=== PATIENT | male | born 1960 | race Caucasian/White ===

== ENCOUNTER → 2020-08-16 | Outpatient (CLI) | payer OTHER ==
[~2020-08-16] MED LIST: ADVAIR; ALPR0.25; ASPI325T; DARV100T; DISDOL; FLOM0.4C39; LEVA500T; METO25TA2; NEXI1CAP3; NITR0.4S; PLAV75TA2; PROZ20CA; THERGRAN; XOPEAER; ZETI10TA; ZOCO80TA
--- NOTE | 2020-08-18 01:12 | ECWPNPC ---
PATIENT NAME: NABEEL BATES : 1960 GENDER: MALE VISIT DATE: 08/16/2020 DISCHARGE DATE: 08/16/20 1408 VISIT LOCKED DATE TIME: PHYSICIAN: ELODIA ALEX RESOURCE: ELODIA ALEX REASON FOR APPOINTMENT 1. SCOLIOSIS OF THE LUMBAR REGION HISTORY OF PRESENT ILLNESS DEPRESSION SCREENING: PHQ-9 LITTLE INTEREST OR PLEASURE IN DOING THINGSNOT AT ALL FEELING DOWN, DEPRESSED, OR HOPELESSNEARLY EVERY DAY TROUBLE FALLING OR STAYING ASLEEP, OR SLEEPING TOO MUCHNEARLY EVERY DAY FEELING TIRED OR HAVING LITTLE ENERGYNEARLY EVERY DAY POOR APPETITE OR OVEREATING NEARLY EVERY DAY FEELING BAD ABOUT YOURSELF-OR THAT YOU ARE A FAILURE OR HAVE LET YOURSELF OR YOUR FAMILY DOWN NEARLY EVERY DAY TROUBLE CONCENTRATING ON THINGS, SUCH READING THE NEWSPAPER OR WATCHING TELEVISION NEARLY EVERY DAY MOVING OR SPEAKING SO SLOWLY THAT OTHER PEOPLE COULD HAVE NOTICED. OR THE OPPOSITE- BEING SO FIDGETY OR RESTLESS THAT YOU HAVE BEEN MOVING AROUND A LOT MORE THAN USUALNEARLY EVERY DAY THOUGHTS THAT YOU WOULD BE BETTER OFF , OR OF HURTING YOURSELF IN SOME WAY?NOT AT ALL TOTAL SCORE:21 INTERPRETATIONSEVERE DEPRESSION PHQ-2 (2015 EDITION) LITTLE INTEREST OR PLEASURE IN DOING THINGS?NOT AT ALL FEELING DOWN, DEPRESSED, OR HOPELESS?NEARLY EVERY DAY TOTAL SCORE3 GENERAL: HPI 60-YEAR-OLD MALE IN FOR INITIAL PAIN CONSULT REGARDING LOW BACK PAIN. PATIENT RATES HIS PAIN CURRENTLY AT AN 8 OUT OF 10 AND DESCRIBES IT INTERMITTENT, SHARP, STABBING, AND THROBBING. PATIENT IS CURRENTLY TAKING OXYCODONE HE ADMITS THAT THIS MEDICATION DOES TAKE THE EDGE OFF THE PAIN. PATIENT ADMITS THE PAIN HAS BEEN PRESENT FOR SEVERAL YEARS.. - -. FALL RISK SCREENING: SCREENING PATIENT REPORTS ABOUT TWENTY OR MORE FALLS IN THE PAST YEAR WITHOUT INJURY. PATIENT DENIES MEDICAL TREATMENT FOR ANY OF THE FALLS. . PAIN SCREENING: PATIENT HAS A COMPLAINT OF ACUTE OR CHRONIC PAIN :YES LOCATION OF PAIN:LOW BACK, LEFT HIP, RIGHT HIP, LEG(S) INTENSITY OF PAIN (SCALE OF 1 TO 10):8 8 IS AVERAGE WHAT DOES YOUR PAIN FEEL LIKE:INTERMITTENT, SHARP, STABBING, THROBBING DURATION:INTERMITTENT, AWAKENS FROM SLEEP PAIN IS INCREASED BY:ACTIVITIES, PROLONGED STANDING PAIN IS DECREASED BY:USE OF PAIN MEDICATIONS, SITTING, OTHERS BIOWAVE, OINTMENT, HEATING PAD, HOT WATER BOTTLE AND ICE PACKS. NURSING NOTE: - -. PAIN CENTER INTAKE QUESTIONS: DO YOU HAVE A HISTORY OF MRSA? :NO DO YOU TAKE A BLOOD THINNERS? :YES PLAVIX AND CILOSTIZOL DO YOU HAVE ANY BLEEDING DISORDERS? :NO ANY NEW NUMBNESS OR WEAKNESS IN YOUR LEGS OR ARMS? :NO ANY PACEMAKER,DEFIBRILLATOR, OR DORSAL COLUMN STIMULATOR? :NO DO YOU HAVE ANY RASHES OR OPEN SORES? :NO ARE YOU ALLERGIC TO IV DYE? :NO ARE YOU DIABETIC? :NO ANY NEW PROBLEMS WITH YOUR MEDICATIONS? :NO HAVE YOU RECEIVED A VACCINE IN THE PAST 30 DAYS? :YES IF SO WHAT VACCINE AND WHEN? SECOND COVID VACCINATION 07/19/2020 DO YOU PLAN TO RECEIVE A VACCINE IN THE NEXT 21 DAYS? :NO DO YOU NEED ANY PRESCRIPTION? :NO DO YOU TAKE ANY IMMUNOSUPPRESSIVE MEDICATIONS? :NO IS THERE A CHANCE YOU COULD BE ? :NO ARE YOU BREAST FEEDING? :NO CURRENT MEDICATIONS TAKING BUSPIRONE HCL 15 MG TABLET 1 TABLET ORALLY TWICE A DAY TAKING CILOSTAZOL 100 MG TABLET 1 TABLET 30 MINUTES BEFORE OR 2 HOURS AFTER BREAKFAST AND DINNER ORALLY TWICE A DAY TAKING CLOPIDOGREL BISULFATE 75 MG TABLET 1 TABLET ORALLY ONCE A DAY TAKING DICLOFENAC 35 MG CAPSULE 1 CAPSULE NEEDED ORALLY TWICE TIMES A DAY, NOTES: %1 GEL TAKING FERROUS SULFATE 324 MG TABLET DELAYED RELEASE 1 TABLET ORALLY ONCE A DAY TAKING GABAPENTIN 300 MG CAPSULE 1 CAPSULE ORALLY THREE TIMES A DAY TAKING MAGNESIUM 400 MG CAPSULE DIRECTED ORALLY TWICE A DAY TAKING METHOCARBAMOL 500 MG TABLET 1.5 TABLETS ORALLY THREE TIMES A DAY NEEDED TAKING NUTRITIONAL SUPPLEMENT - LIQUID ORALLY 3-4TIMES EVERY DAY TAKING OXYCODONE HCL 5 MG/5ML SOLUTION 5 ML NEEDED ORALLY FOUR TIMES A DAY NEEDED TAKING RIBOFLAVIN 100 MG TABLET 1 TABLET ORALLY TWICE A DAY TAKING SILDENAFIL CITRATE 100 MG TABLET 1 TABLET NEEDED ORALLY 4 HOURS PRIOR TO SEXUAL AVTIVITY NOT-TAKING DICLOFENAC EPOLAMINE 1.3 % PATCH 24 HOUR 1 PATCH NEEDED EXTERNALLY ONCE A DAY NOT-TAKING EZETIMIBE 10 MG TABLET 1 TABLET ORALLY ONCE A DAY NOT-TAKING ATORVASTATIN CALCIUM 80 MG TABLET 1 TABLET ORALLY ONCE A DAY NOT-TAKING PLAVIX 75 MG TABLET 1 TABLET ORALLY ONCE A DAY NOT-TAKING SIMVASTATIN 80 MG TABLET 1 TABLET IN THE EVENING ORALLY ONCE A DAY NOT-TAKING METOPROLOL SUCCINATE 50 MG TABLET EXTENDED RELEASE ORALLY NOT-TAKING DOXYCYCLINE MONOHYDRATE 100 MG CAPSULE 1 CAPSULE ORALLY BID MEDICATION LIST REVIEWED AND RECONCILED WITH THE PATIENT PAST MEDICAL HISTORY CHRONIC LOW BACK PAIN VITAMIN D DEFICIENCY VITAMIN B12 DEFICIENCY CALCUTUS OD KIDNEY HYPERTENSION GASTROESOPHAGEAL REFLUX DIESASE VITAMIN D3 DEFICIENCY DEPRESSION CHRONIC OBSTRUCTIVE LUNG DISEASE CORONARY ARTERY DISEASE PERIPHERAL VASCULAR DISEASE PERIPHERAL ARTERIAL DISEASE 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 NOS CERVICAL PAIN PERCUTANEOUS TRANSLUMINAL CORONARY ANGIOPLASTY LEFT CAROTID ARTERY STENOSIS HYPOKALEMIA ADULT FAILURE TO THRIVE SYNDROME UNINTENTIONAL WEIGHT LOSS BLOOD CHEMISTRY ABNORMAL NUTRITIONAL ANEMA THYROID FUCTION TESTS ABNOMAL URETERAL CALCULUS AORTOCORONARY ARTERY BYPASS GRAFT REPEATED BIPOLAR DISORDER NICOTINE DEPENDENCE HYPERLIPIDEMIA HYPOGLYCEMIA PERIPHERAL VASCULAR DISEASE SLEEP APNEA ALLERGIES PENICILLIN (FOR ALLERGIES USE ONLY): ANAPHYLAXIS BEE STINGS: ANAPHYLAXIS OLIVES: ANAPHYLAXIS NICOTINE PATCH: SKIN BURNING SURGICAL HISTORY AORTOCORONARY ARTEY BYPASS GREAFT REPEATED RIGHT SHOULDER SURGERY B/L CT RELASE RIGHT 3RD FINGER SURGERY LEFT KNEE ARTHROSCOPY APPENDECTOMY 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 2 SON(S) - HEALTHY. MOTHER AND FATHER HAD HEART DISEASE. SOCIAL HISTORY GENERAL: TOBACCO USE ARE YOU A:CURRENT SMOKER ARE YOU INTERESTED IN QUITTING?NOT READY TO QUIT COUNSELED THE PATIENT ON SMOKING EFFECTS, EDUCATION [id number]/25/2021 HOW MANY CIGARETTES A DAY DO YOU SMOKE?- LATEX QUESTIONNAIRE LATEX ALLERGY : HAVE YOU EVER DEVELOPED ANY TYPE OF REACTION AFTER HANDLING LATEX PRODUCTS SUCH RUBBER GLOVES, CONDOMS, DIAPHRAGMS, BALLOONS, SOCKS, OR UNDERWEAR?NO LATEX ALLERGY : HAVE YOU EVER DEVELOPED ANY TYPE OF REACTION DURING OR AFTER DENTAL APPOINTMENT, VAGINAL/RECTAL EXAMINATION, SURGICAL PROCEDURE, OR ANY OTHER EXPOSURE?NO LATEX RISK : HAVE YOU EVER HAD ANY DIFFICULTY BREATHING OR HIVES AFTER EATING OR HANDLING ANY FRUITS, OR VEGETABLES; SUCH KIWI, BANANAS, STONE FRUITS, OR CHESTNUTSNO LATEX RISK : DO YOU HAVE A PREVIOUS PERSONAL HISTORY OF MORE THAN NINE SURGERIES, SPINA BIFIDA, OR REPEATED CATHERIZATIONS? NO LATEX RISK : ARE YOU FREQUENTLY EXPOSED TO LATEX PRODUCTS IN YOUR OCCUPATION?NO DATE ASKED : 08/15/2020 ALCOHOL USE: OCCASIONAL. RECREATIONAL DRUG USE DRUG USE?YES MARIJUANA HOW OFTEN AND HOW MUCH? FIVE TIMES DAILY LANGUAGE LANGUAGES SPOKEN:BANGLADESHI EDUCATION LEVEL OF EDUCATION:COLLEGE LEARNING BARRIERS / SPECIAL NEEDS BARRIERS TO LEARNING?NO ILLITERATE HEARING IMPAIRED?NO VISION IMPAIRED?YES :CORRECTIVE LENSES COGNITIVELY IMPAIRED?NO READINESS TO LEARN?YES LEARNING PREFERENCES?YES :TAPES/VIDEOS, DEMONSTRATION/VERBAL INSTRUCTION LEARNING CAPABILITIES PRESENT?YES EMOTIONAL BARRIERS?YES DEPRESSION, ANXIETY, PTSD SPECIAL DEVICES?YES :CANE SPECIAL FOR[employer] SENIOR SERGEANT NEEDED?NO HOSPITALIZATION/MAJOR DIAGNOSTIC PROCEDURE SURGERY RELATED REVIEW OF SYSTEMS CONSTITUTIONAL: ANY RECENT FEVER NO . CHILLS NO . WEIGHT CHANGE OF UNKNOWN REASONS NO . MUSCULOSKELETAL: ANY UNUSUAL JOINT PAIN OR SWELLING NOT MENTIONED NO . SYSTEMIC LUPUS NO . ANY NEUROMUSCULAR DISORDER NOT MENTIONED NO . LYME DISEASE NO . GASTROENTEROLOGY: ANY NEW CHANGE IN BOWEL CONTROL? NO . HISTORY OF LIVER DISORDER NOT MENTIONED NO . HISTORY OF UNUSUAL ABDOMINAL PAIN OR CRAMPING NOT MENTIONED NO . NO CONSTIPATION. GENITOURINARY: ANY NEW CHANGE IN BLADDER CONTROL? NO . ANY RENAL/KIDNEY CONDITON NOT MENTIONED NO . NEUROLOGY: HISTORY OF TBI NOT MENTIONED NO . OTHER NEW NUMBNESS OR PAIN PATTERNS NOT MENTIONED NO . NEW ONSET DIZZINESS OR NEUROLOGICAL CHANGES NOT MENTIONED NO . HISTORY OF SEVERE HEADACHES NOT MENTIONED NO . HISTORY OF STROKE OR NEUROLOGICAL DISORDER NOT MENTIONED NO . CARDIOLOGY: HEART SURGERY NO . CONGESTIVE HEART FAILURE/FLUID OVERLOAD NOT MENTIONED NO . HISTORY OF CHEST PAIN,IRREGULAR HEART BEAT NOT MENTIONED NO . RESPIRATORY: SHORTNESS OF BREATH ON EXERTION, WHEEZES, UNUSUAL COUGH NOT MENTIONED NO . ENDOCRINOLOGY: ADRENAL GLAND OR THYROID DISORDERS NOT MENTIONED NO . UNUSUAL URINATION, DIZZINESS OR LETHARGY NOT MENTIONED NO . VITAL SIGNS WT 127.0 LBS, HT 53 IN, BMI 31.78 INDEX, BP 114/61 MM HG, HR 62 /MIN, RR 18 /MIN, TEMP 97.0 F, OXYGEN SAT % 92%, SAFE IN ENV? (Y/N) YES, NA INITIALS AW 1304, REVIEWED BY: ROSINA MUÑOZ MA. EXAMINATION GENERAL EXAMINATION: GENERALNO ACUTE DISTRESS, WELL NOURISHED AND HYDRATED. PSYCHAPPROPRIATE MOOD AND AFFECT . LUNGS:CLEAR TO AUSCULTATION BILATERALLY, NO WHEEZES, RHONCHI, RALES. HEART:NO MURMURS, REGULAR RATE AND RHYTHM. BACK:POINT TENDER ALONG LUMBAR SPINE, SURROUNDING SKIN SHOWS NO ERYTHEMA, ECCHYMOSIS, INCREASED WARMTH, AND/OR SKIN ERUPTIONS NOTED. POSITIVE MODIFIED SLR LEFT SIDE. MUSCULOSKELETAL:EQUAL STRENGTH OF THE LOWER EXTREMITIES BILATERALLY. ASSESSMENTS INTERVERTEBRAL DISC DISORDER WITH RADICULOPATHY OF LUMBOSACRAL REGION - M51.17 (PRIMARY) TREATMENT INTERVERTEBRAL DISC DISORDER WITH RADICULOPATHY OF LUMBOSACRAL REGION START LYRICA CAPSULE, 75 MG, 1 CAPSULE, ORALLY, TWICE DAILY, 30 DAYS, 60 NOTES: 60-YEAR-OLD MALE IN FOR INITIAL PAIN CONSULT REGARDING LOW BACK PAIN. DISCUSSED PROCEDURES WITH PATIENT AND HE DECLINES THEM AT THIS TIME. GIVEN PRESENTING SYMPTOMS AND RESULTS OF PHYSICAL EXAMINATION RECOMMENDED LYRICA 75 MG TWICE A DAY WITH FOLLOW-UP IN ONE MONTH TO DETERMINE EFFICACY OF TREATMENT. DISCUSSED DEPRESSION WITH PATIENT AND HE ADMITS TO HAVING COUNSELING SERVICES AND MEDICATION TO HELP MANAGE HIS SYMPTOMS.PATIENT TO TAPER OFF GABAPENTIN FOLLOWS 300 MG TWICE DAILY FOR 1 WEEK THEN 300 MG ONCE DAILY FOR 1 WEEK THEN 300 MGEVERY OTHER DAY FOR 1 WEEK THEN STOP. PATIENT HAS EXPRESSED UNDERSTANDING OF AND WAS IN AGREEMENT WITH TREATMENT PLAN. GIVEN TIME TO ASK QUESTIONS AND EXPRESS CONCERNS. [employer] REGISTRY REVIEWED AND DEMONSTRATES COMPLLIANCE. (REF # [id number] ). OTHERS NOTES: PREGABALIN MATERIAL WAS PRINTED. CLINICAL NOTES: PATIENT TRIGGERED THE PHQ9 WITH A SCORE OF 21. PROVIDER NOTIFIED. ROCHELLE MUÑOZ MA. PROCEDURE CODES FA211 ESTABILISHED PATIENT [facility] CHARGE DISPOSITION & COMMUNICATION ELECTRONICALLY SIGNED BY STEVIE ESPINOSA ON 08/17/2020 AT 08:42 AM EDT DISCLAIMER : THIS IS A VISIT SUMMARY EXTRACTED FROM THE [employer] CHART. IT IS NOT A COPY OF THE [employer] PROGRESS NOTE. [facility]
== END ==
LOC: M PAIN 13:00
PROVIDERS: ATTEND Family Medicine
DX: M51.17 Intervertebral disc disorders with radiculopathy, lumbosacral region (principal); E55.9 Vitamin D deficiency, unspecified; E53.8 Deficiency of other specified B group vitamins; I10 Essential (primary) hypertension; F32.9 Major depressive disorder, single episode, unspecified; K21.9 Gastro-esophageal reflux disease without esophagitis; J44.9 Chronic obstructive pulmonary disease, unspecified; I73.9 Peripheral vascular disease, unspecified; N40.0 Benign prostatic hyperplasia without lower urinary tract symptoms; E87.6 Hypokalemia; F17.210 Nicotine dependence, cigarettes, uncomplicated; Z79.02 Long term (current) use of antithrombotics/antiplatelets; Z79.891 Long term (current) use of opiate analgesic; Z79.899 Other long term (current) drug therapy; Z88.0 Allergy status to penicillin; Z91.018 Allergy to other foods; Z91.030 Bee allergy status; Z88.8 Allergy status to other drugs, medicaments and biological substances

== ENCOUNTER → 2020-09-16 | Outpatient (CLI) | payer OTHER ==
--- NOTE | 2020-09-20 02:37 | ECWPNPC ---
PATIENT NAME: NABEEL BATES : 1960 GENDER: MALE VISIT DATE: 09/16/2020 DISCHARGE DATE: 09/16/20 1334 VISIT LOCKED DATE TIME: PHYSICIAN: ELODIA ALEX RESOURCE: ELODIA ALEX REASON FOR APPOINTMENT 1. NEW MED HISTORY OF PRESENT ILLNESS GENERAL: HPI 60-YEAR-OLD MALE IN FOR CHRONIC PAIN FOLLOW-UP. AT LAST CLINIC VISIT PATIENT WAS STARTED ON LYRICA AND HE ADMITS THAT THIS IS SOMEWHAT HELPFUL HOWEVER IT DOES NOT COMPLETELY HELP HIS PAIN SYMPTOMS. HE RATES HIS PAIN CURRENTLY AT A 9 OF 10.. -. FALL RISK SCREENING: SCREENING : NO FALLS REPORTED IN THE LAST YEAR. PAIN SCREENING: PATIENT HAS A COMPLAINT OF ACUTE OR CHRONIC PAIN :YES LOCATION OF PAIN:LOW BACK INTENSITY OF PAIN (SCALE OF 1 TO 10):9 WHAT DOES YOUR PAIN FEEL LIKE:SHARP, STABBING, SHOOTING ELECTRICAL SHOCK DURATION:INTERMITTENT, AWAKENS FROM SLEEP PAIN IS INCREASED BY:ACTIVITIES, PROLONGED STANDING PAIN IS DECREASED BY:OTHERS NOTHING IS HELPING WITH THE PAIN. NURSING NOTE: -. PAIN CENTER INTAKE QUESTIONS: DO YOU HAVE A HISTORY OF MRSA? :NO DO YOU TAKE A BLOOD THINNERS? :YES PLAVIX AND CILOSTIZOL DO YOU HAVE ANY BLEEDING DISORDERS? :NO ANY NEW NUMBNESS OR WEAKNESS IN YOUR LEGS OR ARMS? :NO ANY PACEMAKER,DEFIBRILLATOR, OR DORSAL COLUMN STIMULATOR? :NO DO YOU HAVE ANY RASHES OR OPEN SORES? :NO ARE YOU ALLERGIC TO IV DYE? :NO ARE YOU DIABETIC? :NO ANY NEW PROBLEMS WITH YOUR MEDICATIONS? :NO HAVE YOU RECEIVED A VACCINE IN THE PAST 30 DAYS? : SECOND COVID VACCINATION 07/19/2020 DO YOU PLAN TO RECEIVE A VACCINE IN THE NEXT 21 DAYS? :NO DO YOU NEED ANY PRESCRIPTION? :NO DO YOU TAKE ANY IMMUNOSUPPRESSIVE MEDICATIONS? :NO IS THERE A CHANCE YOU COULD BE ? :NO ARE YOU BREAST FEEDING? :NO CURRENT MEDICATIONS TAKING BUSPIRONE HCL 15 MG TABLET 1 TABLET ORALLY TWICE A DAY TAKING CILOSTAZOL 100 MG TABLET 1 TABLET 30 MINUTES BEFORE OR 2 HOURS AFTER BREAKFAST AND DINNER ORALLY TWICE A DAY TAKING CLOPIDOGREL BISULFATE 75 MG TABLET 1 TABLET ORALLY ONCE A DAY TAKING DICLOFENAC 35 MG CAPSULE 1 CAPSULE NEEDED ORALLY TWICE TIMES A DAY, NOTES: %1 GEL TAKING FERROUS SULFATE 324 MG TABLET DELAYED RELEASE 1 TABLET ORALLY ONCE A DAY TAKING MAGNESIUM 400 MG CAPSULE DIRECTED ORALLY TWICE A DAY TAKING METHOCARBAMOL 500 MG TABLET 1.5 TABLETS ORALLY THREE TIMES A DAY NEEDED TAKING NUTRITIONAL SUPPLEMENT - LIQUID ORALLY 3-4TIMES EVERY DAY TAKING OXYCODONE HCL 5 MG/5ML SOLUTION 5 ML NEEDED ORALLY FOUR TIMES A DAY NEEDED TAKING RIBOFLAVIN 100 MG TABLET 1 TABLET ORALLY TWICE A DAY TAKING SILDENAFIL CITRATE 100 MG TABLET 1 TABLET NEEDED ORALLY 4 HOURS PRIOR TO SEXUAL AVTIVITY TAKING LYRICA 75 MG CAPSULE 1 CAPSULE ORALLY TWICE DAILY NOT-TAKING GABAPENTIN 300 MG CAPSULE 1 CAPSULE ORALLY THREE TIMES A DAY NOT-TAKING LYRICA 75 MG CAPSULE 1 CAPSULE ORALLY TWICE A DAY NOT-TAKING DICLOFENAC EPOLAMINE 1.3 % PATCH 24 HOUR 1 PATCH NEEDED EXTERNALLY ONCE A DAY NOT-TAKING EZETIMIBE 10 MG TABLET 1 TABLET ORALLY ONCE A DAY NOT-TAKING ATORVASTATIN CALCIUM 80 MG TABLET 1 TABLET ORALLY ONCE A DAY NOT-TAKING PLAVIX 75 MG TABLET 1 TABLET ORALLY ONCE A DAY NOT-TAKING SIMVASTATIN 80 MG TABLET 1 TABLET IN THE EVENING ORALLY ONCE A DAY NOT-TAKING METOPROLOL SUCCINATE 50 MG TABLET EXTENDED RELEASE ORALLY NOT-TAKING DOXYCYCLINE MONOHYDRATE 100 MG CAPSULE 1 CAPSULE ORALLY BID MEDICATION LIST REVIEWED AND RECONCILED WITH THE PATIENT PAST MEDICAL HISTORY CHRONIC LOW BACK PAIN VITAMIN D DEFICIENCY VITAMIN B12 DEFICIENCY CALCUTUS OD KIDNEY HYPERTENSION GASTROESOPHAGEAL REFLUX DIESASE VITAMIN D3 DEFICIENCY DEPRESSION CHRONIC OBSTRUCTIVE LUNG DISEASE CORONARY ARTERY DISEASE PERIPHERAL VASCULAR DISEASE PERIPHERAL ARTERIAL DISEASE 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 NOS CERVICAL PAIN PERCUTANEOUS TRANSLUMINAL CORONARY ANGIOPLASTY LEFT CAROTID ARTERY STENOSIS HYPOKALEMIA ADULT FAILURE TO THRIVE SYNDROME UNINTENTIONAL WEIGHT LOSS BLOOD CHEMISTRY ABNORMAL NUTRITIONAL ANEMA THYROID FUCTION TESTS ABNOMAL URETERAL CALCULUS AORTOCORONARY ARTERY BYPASS GRAFT REPEATED BIPOLAR DISORDER NICOTINE DEPENDENCE HYPERLIPIDEMIA HYPOGLYCEMIA PERIPHERAL VASCULAR DISEASE SLEEP APNEA ALLERGIES PENICILLIN (FOR ALLERGIES USE ONLY): ANAPHYLAXIS BEE STINGS: ANAPHYLAXIS OLIVES: ANAPHYLAXIS NICOTINE PATCH: SKIN BURNING SOCIAL HISTORY GENERAL: TOBACCO USE ARE YOU A:CURRENT SMOKER ARE YOU INTERESTED IN QUITTING?NOT READY TO QUIT COUNSELED THE PATIENT ON SMOKING EFFECTS, EDUCATION [id number]/25/2021 HOW MANY CIGARETTES A DAY DO YOU SMOKE?- LATEX QUESTIONNAIRE LATEX ALLERGY : HAVE YOU EVER DEVELOPED ANY TYPE OF REACTION AFTER HANDLING LATEX PRODUCTS SUCH RUBBER GLOVES, CONDOMS, DIAPHRAGMS, BALLOONS, SOCKS, OR UNDERWEAR?NO LATEX ALLERGY : HAVE YOU EVER DEVELOPED ANY TYPE OF REACTION DURING OR AFTER DENTAL APPOINTMENT, VAGINAL/RECTAL EXAMINATION, SURGICAL PROCEDURE, OR ANY OTHER EXPOSURE?NO LATEX RISK : HAVE YOU EVER HAD ANY DIFFICULTY BREATHING OR HIVES AFTER EATING OR HANDLING ANY FRUITS, OR VEGETABLES; SUCH KIWI, BANANAS, STONE FRUITS, OR CHESTNUTSNO LATEX RISK : DO YOU HAVE A PREVIOUS PERSONAL HISTORY OF MORE THAN NINE SURGERIES, SPINA BIFIDA, OR REPEATED CATHERIZATIONS? NO LATEX RISK : ARE YOU FREQUENTLY EXPOSED TO LATEX PRODUCTS IN YOUR OCCUPATION?NO DATE ASKED : 09/16/2020 ALCOHOL USE: OCCASIONAL. RECREATIONAL DRUG USE DRUG USE?YES MARIJUANA HOW OFTEN AND HOW MUCH? 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 CHILLS NO . WEIGHT CHANGE OF UNKNOWN REASONS NO . GASTROENTEROLOGY: NEW UNEXPLAINABLE CHANGES IN BOWEL CONTROL NO . CONSTIPATION NO . GENITOURINARY: ANY NEW CHANGE IN BLADDER CONTROL? NO . NEUROLOGY: NEW ONSET DIZZINESS OR NEUROLOGICAL CHANGES NOT MENTIONED NO . NEW NUMBNESS OR PAIN PATTERNS NOT MENTIONED AND PERTINENT TO TODAY'S VISIT NO . CARDIOLOGY: NEW CHEST PRESSURE NO . PATIENT DENIES NO . RESPIRATORY: UNEXPLAINABLE COUGH NO . NEW SHORTNESS OF BREATH NO . VITAL SIGNS WT 124.2 LBS, HT 53 IN, BMI 31.08 INDEX, BP 116/66 MM HG, HR 65 /MIN, RR 16 /MIN, TEMP 98.9 F, OXYGEN SAT % 97%, SAFE IN ENV? (Y/N) YES, NA INITIALS ND 13:16, REVIEWED BY: ROSINA MUÑOZ MA. EXAMINATION GENERAL EXAMINATION: GENERALNO ACUTE DISTRESS, WELL NOURISHED AND HYDRATED. PSYCHAPPROPRIATE MOOD AND AFFECT . LUNGS:CLEAR TO AUSCULTATION BILATERALLY, NO WHEEZES, RHONCHI, RALES. HEART:NO MURMURS, REGULAR RATE AND RHYTHM. ASSESSMENTS INTERVERTEBRAL DISC DISORDER WITH RADICULOPATHY OF LUMBOSACRAL REGION - M51.17 (PRIMARY) TREATMENT INTERVERTEBRAL DISC DISORDER WITH RADICULOPATHY OF LUMBOSACRAL REGION REFILL LYRICA CAPSULE, 100 MG, 1 CAPSULE, ORALLY, TWICE DAILY, 30 DAYS, 60, REFILLS 2 NOTES: 60-YEAR-OLD MALE IN FOR CHRONIC PAIN FOLLOW-UP. GIVEN PRESENTING SYMPTOMS RECOMMEND INCREASING LYRICA TO 100 MG TWICE DAILY WITH FOLLOW-UP IN 1 MONTH TO DETERMINE EFFICACY OF TREATMENT. PATIENT HAS EXPRESSED UNDERSTANDING OF AND WAS IN AGREEMENT WITH TREATMENT PLAN. GIVEN TIME TO ASK QUESTIONS AND EXPRESS CONCERNS. PROCEDURE CODES FA211 ESTABILISHED PATIENT [facility] CHARGE DISPOSITION & COMMUNICATION FOLLOW UP 4 WEEKS (REASON: MED INCREASE ) ELECTRONICALLY SIGNED BY STEVIE ESPINOSA ON 09/19/2020 AT 09:51 AM EDT DISCLAIMER : THIS IS A VISIT SUMMARY EXTRACTED FROM THE [employer] CHART. IT IS NOT A COPY OF THE [employer] PROGRESS NOTE. RENÉ
== END ==
LOC: M PAIN 13:30
PROVIDERS: ATTEND Family Medicine
DX: M51.17 Intervertebral disc disorders with radiculopathy, lumbosacral region (principal); G89.29 Other chronic pain; G47.30 Sleep apnea, unspecified; F17.210 Nicotine dependence, cigarettes, uncomplicated; Z86.59 Personal history of other mental and behavioral disorders; Z88.0 Allergy status to penicillin; Z88.8 Allergy status to other drugs, medicaments and biological substances; Z91.018 Allergy to other foods; Z91.030 Bee allergy status; Z79.899 Other long term (current) drug therapy

== ENCOUNTER → 2020-10-14 | Outpatient (CLI) | payer OTHER ==
--- NOTE | 2020-10-18 03:05 | ECWPNPC ---
PATIENT NAME: NABEEL BATES : 1960 GENDER: MALE VISIT DATE: 10/14/2020 DISCHARGE DATE: 10/14/20 1414 VISIT LOCKED DATE TIME: PHYSICIAN: ELODIA ALEX RESOURCE: ELODIA ALEX REASON FOR APPOINTMENT 1. MED INCREASE HISTORY OF PRESENT ILLNESS GENERAL: HPI 60-YEAR-OLD MALE IN FOR CHRONIC PAIN FOLLOW-UP. AT LAST CLINIC VISIT PATIENT'S LYRICA WAS INCREASED TO 100 MG TWICE DAILY AND HE ADMITS THAT THIS WAS BENEFICIAL HOWEVER HE STILL EXPERIENCES INCREASED PAIN AT TIMES. HE RATES HIS PAIN CURRENTLY AT A 7 OUT OF 10 AND DESCRIBES IT SHARP, STABBING, AND SHOOTING.. -. FALL RISK SCREENING: SCREENING : NO FALLS REPORTED IN THE LAST YEAR. PAIN SCREENING: PATIENT HAS A COMPLAINT OF ACUTE OR CHRONIC PAIN :YES LOCATION OF PAIN:NECK, LOW BACK INTENSITY OF PAIN (SCALE OF 1 TO 10):7 WHAT DOES YOUR PAIN FEEL LIKE:SHARP, STABBING, SHOOTING, OTHER RADIATING DURATION:CONTINOUS, CONSTANT, AWAKENS FROM SLEEP PAIN IS INCREASED BY:ACTIVITIES, PROLONGED STANDING PAIN IS DECREASED BY:USE OF PAIN MEDICATIONS, SITTING NURSING NOTE: -. PAIN CENTER INTAKE QUESTIONS: DO YOU HAVE A HISTORY OF MRSA? :NO DO YOU TAKE A BLOOD THINNERS? :YES PLAVIX AND CILOSTIZOL DO YOU HAVE ANY BLEEDING DISORDERS? :NO ANY NEW NUMBNESS OR WEAKNESS IN YOUR LEGS OR ARMS? :YES TINGLING BILATERAL FINGERTIPS ANY PACEMAKER,DEFIBRILLATOR, OR DORSAL COLUMN STIMULATOR? :NO DO YOU HAVE ANY RASHES OR OPEN SORES? :NO ARE YOU ALLERGIC TO IV DYE? :NO ARE YOU DIABETIC? :NO ANY NEW PROBLEMS WITH YOUR MEDICATIONS? :NO HAVE YOU RECEIVED A VACCINE IN THE PAST 30 DAYS? : SECOND COVID VACCINATION 07/19/2020 DO YOU PLAN TO RECEIVE A VACCINE IN THE NEXT 21 DAYS? :NO DO YOU NEED ANY PRESCRIPTION? :NO DO YOU TAKE ANY IMMUNOSUPPRESSIVE MEDICATIONS? :NO IS THERE A CHANCE YOU COULD BE ? :NO ARE YOU BREAST FEEDING? :NO CURRENT MEDICATIONS TAKING BUSPIRONE HCL 15 MG TABLET 1 TABLET ORALLY TWICE A DAY TAKING CILOSTAZOL 100 MG TABLET 1 TABLET 30 MINUTES BEFORE OR 2 HOURS AFTER BREAKFAST AND DINNER ORALLY TWICE A DAY TAKING CLOPIDOGREL BISULFATE 75 MG TABLET 1 TABLET ORALLY ONCE A DAY TAKING DICLOFENAC 35 MG CAPSULE 1 CAPSULE NEEDED ORALLY TWICE TIMES A DAY, NOTES: %1 GEL TAKING FERROUS SULFATE 324 MG TABLET DELAYED RELEASE 1 TABLET ORALLY ONCE A DAY TAKING MAGNESIUM 400 MG CAPSULE DIRECTED ORALLY TWICE A DAY TAKING METHOCARBAMOL 500 MG TABLET 1.5 TABLETS ORALLY THREE TIMES A DAY NEEDED TAKING NUTRITIONAL SUPPLEMENT - LIQUID ORALLY 3-4TIMES EVERY DAY TAKING OXYCODONE HCL 5 MG/5ML SOLUTION 5 ML NEEDED ORALLY FOUR TIMES A DAY NEEDED TAKING RIBOFLAVIN 100 MG TABLET 1 TABLET ORALLY TWICE A DAY TAKING SILDENAFIL CITRATE 100 MG TABLET 1 TABLET NEEDED ORALLY 4 HOURS PRIOR TO SEXUAL AVTIVITY TAKING LYRICA 100 MG CAPSULE 1 CAPSULE ORALLY TWICE DAILY NOT-TAKING GABAPENTIN 300 MG CAPSULE 1 CAPSULE ORALLY THREE TIMES A DAY NOT-TAKING LYRICA 75 MG CAPSULE 1 CAPSULE ORALLY TWICE A DAY NOT-TAKING DICLOFENAC EPOLAMINE 1.3 % PATCH 24 HOUR 1 PATCH NEEDED EXTERNALLY ONCE A DAY NOT-TAKING EZETIMIBE 10 MG TABLET 1 TABLET ORALLY ONCE A DAY NOT-TAKING ATORVASTATIN CALCIUM 80 MG TABLET 1 TABLET ORALLY ONCE A DAY NOT-TAKING PLAVIX 75 MG TABLET 1 TABLET ORALLY ONCE A DAY NOT-TAKING SIMVASTATIN 80 MG TABLET 1 TABLET IN THE EVENING ORALLY ONCE A DAY NOT-TAKING METOPROLOL SUCCINATE 50 MG TABLET EXTENDED RELEASE ORALLY NOT-TAKING DOXYCYCLINE MONOHYDRATE 100 MG CAPSULE 1 CAPSULE ORALLY BID MEDICATION LIST REVIEWED AND RECONCILED WITH THE PATIENT PAST MEDICAL HISTORY CHRONIC LOW BACK PAIN VITAMIN D DEFICIENCY VITAMIN B12 DEFICIENCY CALCUTUS OD KIDNEY HYPERTENSION GASTROESOPHAGEAL REFLUX DIESASE VITAMIN D3 DEFICIENCY DEPRESSION CHRONIC OBSTRUCTIVE LUNG DISEASE CORONARY ARTERY DISEASE PERIPHERAL VASCULAR DISEASE PERIPHERAL ARTERIAL DISEASE 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 NOS CERVICAL PAIN PERCUTANEOUS TRANSLUMINAL CORONARY ANGIOPLASTY LEFT CAROTID ARTERY STENOSIS HYPOKALEMIA ADULT FAILURE TO THRIVE SYNDROME UNINTENTIONAL WEIGHT LOSS BLOOD CHEMISTRY ABNORMAL NUTRITIONAL ANEMA THYROID FUCTION TESTS ABNOMAL URETERAL CALCULUS AORTOCORONARY ARTERY BYPASS GRAFT REPEATED BIPOLAR DISORDER NICOTINE DEPENDENCE HYPERLIPIDEMIA HYPOGLYCEMIA PERIPHERAL VASCULAR DISEASE SLEEP APNEA ALLERGIES PENICILLIN (FOR ALLERGIES USE ONLY): ANAPHYLAXIS BEE STINGS: ANAPHYLAXIS OLIVES: ANAPHYLAXIS NICOTINE PATCH: SKIN BURNING SOCIAL HISTORY GENERAL: TOBACCO USE ARE YOU A:CURRENT SMOKER ARE YOU INTERESTED IN QUITTING?NOT READY TO QUIT COUNSELED THE PATIENT ON SMOKING EFFECTS, EDUCATION [id number]/23/2021 HOW MANY CIGARETTES A DAY DO YOU SMOKE?21-30 LATEX QUESTIONNAIRE LATEX ALLERGY : HAVE YOU EVER DEVELOPED ANY TYPE OF REACTION AFTER HANDLING LATEX PRODUCTS SUCH RUBBER GLOVES, CONDOMS, DIAPHRAGMS, BALLOONS, SOCKS, OR UNDERWEAR?NO LATEX ALLERGY : HAVE YOU EVER DEVELOPED ANY TYPE OF REACTION DURING OR AFTER DENTAL APPOINTMENT, VAGINAL/RECTAL EXAMINATION, SURGICAL PROCEDURE, OR ANY OTHER EXPOSURE?NO LATEX RISK : HAVE YOU EVER HAD ANY DIFFICULTY BREATHING OR HIVES AFTER EATING OR HANDLING ANY FRUITS, OR VEGETABLES; SUCH KIWI, BANANAS, STONE FRUITS, OR CHESTNUTSNO LATEX RISK : DO YOU HAVE A PREVIOUS PERSONAL HISTORY OF MORE THAN NINE SURGERIES, SPINA BIFIDA, OR REPEATED CATHERIZATIONS? NO LATEX RISK : ARE YOU FREQUENTLY EXPOSED TO LATEX PRODUCTS IN YOUR OCCUPATION?NO DATE ASKED : 10/14/2020 ALCOHOL USE: OCCASIONAL. RECREATIONAL DRUG USE DRUG USE?YES MARIJUANA HOW OFTEN AND HOW MUCH? FIVE TIMES DAILY LANGUAGE LANGUAGES SPOKEN:CUBAN EDUCATION LEVEL OF EDUCATION:COLLEGE LEARNING BARRIERS / SPECIAL NEEDS CHANGE FROM LAST VISIT?NO BARRIERS TO LEARNING?NO ILLITERATE HEARING IMPAIRED?NO VISION IMPAIRED?YES :CORRECTIVE LENSES COGNITIVELY IMPAIRED?NO READINESS TO LEARN?YES LEARNING PREFERENCES?YES :TAPES/VIDEOS, DEMONSTRATION/VERBAL INSTRUCTION LEARNING CAPABILITIES PRESENT?YES EMOTIONAL BARRIERS?YES DEPRESSION, ANXIETY, PTSD SPECIAL DEVICES?YES :CANE MENTAL HEALTH WORKER NEEDED?NO REVIEW OF SYSTEMS CONSTITUTIONAL: ANY RECENT FEVER NO . CHILLS NO . WEIGHT CHANGE OF UNKNOWN REASONS NO . GASTROENTEROLOGY: NEW UNEXPLAINABLE CHANGES IN BOWEL CONTROL NO . CONSTIPATION NO . GENITOURINARY: ANY NEW CHANGE IN BLADDER CONTROL? NO . NEUROLOGY: NEW ONSET DIZZINESS OR NEUROLOGICAL CHANGES NOT MENTIONED NO . NEW NUMBNESS OR PAIN PATTERNS NOT MENTIONED AND PERTINENT TO TODAY'S VISIT NO . CARDIOLOGY: NEW CHEST PRESSURE NO . PATIENT DENIES NO . RESPIRATORY: UNEXPLAINABLE COUGH NO . NEW SHORTNESS OF BREATH NO . VITAL SIGNS WT 121.6 LBS, HT 53 IN, BMI 30.43 INDEX, BP 119/66 MM HG, HR 73 /MIN, RR 18 /MIN, TEMP 98.8 F, OXYGEN SAT % 95%, SAFE IN ENV? (Y/N) YES, NA INITIALS AW 1347, REVIEWED BY: ROSINA MUÑOZ MA. EXAMINATION GENERAL EXAMINATION: GENERALNO ACUTE DISTRESS, WELL NOURISHED AND HYDRATED. PSYCHAPPROPRIATE MOOD AND AFFECT . LUNGS:CLEAR TO AUSCULTATION BILATERALLY, NO WHEEZES, RHONCHI, RALES. HEART:NO MURMURS, REGULAR RATE AND RHYTHM. ASSESSMENTS INTERVERTEBRAL DISC DISORDER WITH RADICULOPATHY OF LUMBOSACRAL REGION - M51.17 (PRIMARY) TREATMENT INTERVERTEBRAL DISC DISORDER WITH RADICULOPATHY OF LUMBOSACRAL REGION REFILL LYRICA CAPSULE, 100 MG, 1 CAPSULE, ORALLY, TWICE DAILY, 30 DAYS, 60, REFILLS 2 NOTES: 60-YEAR-OLD MALE IN FOR CHRONIC PAIN FOLLOW-UP. GIVEN PRESENTING SYMPTOMS RECOMMEND INCREASING LYRICA TO150 MG TWICE DAILY WITH FOLLOW-UP IN 2 MONTHS TO DETERMINE EFFICACY OF TREATMENT. PATIENT HAS EXPRESSED UNDERSTANDING OF AND WAS IN AGREEMENT WITH TREATMENT PLAN. GIVEN TIME TO ASK QUESTIONS AND EXPRESS CONCERNS. [employer] REGISTRY REVIEWED AND DEMONSTRATES COMPLLIANCE. (REF #[id number] ). PROCEDURE CODES FA211 ESTABILISHED PATIENT [facility] CHARGE DISPOSITION & COMMUNICATION FOLLOW UP 2 MONTHS (REASON: MEDICATION INCREASE) ELECTRONICALLY SIGNED BY STEVIE ESPINOSA ON 10/17/2020 AT 08:39 AM EDT DISCLAIMER : THIS IS A VISIT SUMMARY EXTRACTED FROM THE [employer] CHART. IT IS NOT A COPY OF THE [employer] PROGRESS NOTE. RENÉ
== END ==
LOC: M PAIN 13:45
PROVIDERS: ATTEND Family Medicine
DX: G89.29 Other chronic pain (principal); M51.17 Intervertebral disc disorders with radiculopathy, lumbosacral region; E55.9 Vitamin D deficiency, unspecified; E53.8 Deficiency of other specified B group vitamins; I10 Essential (primary) hypertension; K21.9 Gastro-esophageal reflux disease without esophagitis; F32.9 Major depressive disorder, single episode, unspecified; J44.9 Chronic obstructive pulmonary disease, unspecified; I25.10 Atherosclerotic heart disease of native coronary artery without angina pectoris; I73.9 Peripheral vascular disease, unspecified; N40.0 Benign prostatic hyperplasia without lower urinary tract symptoms; E87.6 Hypokalemia; E78.5 Hyperlipidemia, unspecified; G47.30 Sleep apnea, unspecified; F17.210 Nicotine dependence, cigarettes, uncomplicated; Z79.891 Long term (current) use of opiate analgesic; Z79.899 Other long term (current) drug therapy; Z79.02 Long term (current) use of antithrombotics/antiplatelets; Z88.0 Allergy status to penicillin; Z88.8 Allergy status to other drugs, medicaments and biological substances; Z91.018 Allergy to other foods; Z91.030 Bee allergy status

== ENCOUNTER → 2020-12-22 | Outpatient (CLI) | payer OTHER | LOC: M PAIN 14:00 | PROVIDERS: ATTEND Anesthesiology | DX: M51.16 Intervertebral disc disorders with radiculopathy, lumbar region (principal); G89.29 Other chronic pain; G47.30 Sleep apnea, unspecified; F17.210 Nicotine dependence, cigarettes, uncomplicated; Z86.59 Personal history of other mental and behavioral disorders; Z88.0 Allergy status to penicillin; Z88.8 Allergy status to other drugs, medicaments and biological substances; Z91.018 Allergy to other foods; Z91.030 Bee allergy status; Z79.899 Other long term (current) drug therapy ==

== ENCOUNTER → 2021-04-14 | Outpatient (CLI) | payer OTHER | LOC: M PAIN 14:15 | PROVIDERS: ATTEND Anesthesiology | DX: M48.062 Spinal stenosis, lumbar region with neurogenic claudication (principal); M51.16 Intervertebral disc disorders with radiculopathy, lumbar region; G89.29 Other chronic pain; G47.30 Sleep apnea, unspecified; F17.210 Nicotine dependence, cigarettes, uncomplicated; Z86.59 Personal history of other mental and behavioral disorders; Z88.0 Allergy status to penicillin; Z88.8 Allergy status to other drugs, medicaments and biological substances; Z91.018 Allergy to other foods; Z91.030 Bee allergy status; Z79.899 Other long term (current) drug therapy ==

== ENCOUNTER → 2021-10-13 | Outpatient (CLI) | payer OTHER | LOC: M PAIN 13:30 | PROVIDERS: ATTEND Anesthesiology | DX: M48.061 Spinal stenosis, lumbar region without neurogenic claudication (principal); M51.16 Intervertebral disc disorders with radiculopathy, lumbar region; E55.9 Vitamin D deficiency, unspecified; E53.8 Deficiency of other specified B group vitamins; I10 Essential (primary) hypertension; K21.9 Gastro-esophageal reflux disease without esophagitis; F32.A Depression, unspecified; J44.9 Chronic obstructive pulmonary disease, unspecified; I25.10 Atherosclerotic heart disease of native coronary artery without angina pectoris; I73.9 Peripheral vascular disease, unspecified; N40.0 Benign prostatic hyperplasia without lower urinary tract symptoms; I65.22 Occlusion and stenosis of left carotid artery; E87.6 Hypokalemia; R63.4 Abnormal weight loss; E78.5 Hyperlipidemia, unspecified; G47.30 Sleep apnea, unspecified; E16.2 Hypoglycemia, unspecified; F17.210 Nicotine dependence, cigarettes, uncomplicated; Z95.1 Presence of aortocoronary bypass graft; Z90.49 Acquired absence of other specified parts of digestive tract; Z79.82 Long term (current) use of aspirin; Z79.02 Long term (current) use of antithrombotics/antiplatelets; Z79.891 Long term (current) use of opiate analgesic; Z79.899 Other long term (current) drug therapy; Z88.0 Allergy status to penicillin; Z91.018 Allergy to other foods; Z91.038 Other insect allergy status; Z88.8 Allergy status to other drugs, medicaments and biological substances ==

== ENCOUNTER → 2022-06-25 | Outpatient (CLI) | payer OTHER | LOC: M SOG 08:09 | PROVIDERS: ATTEND Orthopaedic Surgery | DX: M54.50 Low back pain, unspecified (principal); M47.816 Spondylosis without myelopathy or radiculopathy, lumbar region; N20.0 Calculus of kidney; Z95.828 Presence of other vascular implants and grafts; M41.86 Other forms of scoliosis, lumbar region ==

== ENCOUNTER → 2022-08-18 | Outpatient (CLI) | payer OTHER | LOC: M RAD 14:59 | PROVIDERS: ATTEND Orthopaedic Surgery | DX: M47.27 Other spondylosis with radiculopathy, lumbosacral region (principal); Z53.9 Procedure and treatment not carried out, unspecified reason ==

== ENCOUNTER → 2022-09-20 | Outpatient (CLI) | payer OTHER | LOC: M PLARAD 15:15 | PROVIDERS: ATTEND Orthopaedic Surgery | DX: M47.27 Other spondylosis with radiculopathy, lumbosacral region (principal); M51.26 Other intervertebral disc displacement, lumbar region; M51.37 Other intervertebral disc degeneration, lumbosacral region ==

== ENCOUNTER → 2023-02-26 | Outpatient (CLI) | payer OTHER | LOC: M RAD 13:42 | PROVIDERS: ATTEND Nurse Practitioner Family | DX: R06.02 Shortness of breath (principal); I25.10 Atherosclerotic heart disease of native coronary artery without angina pectoris; Z98.890 Other specified postprocedural states ==

== ENCOUNTER → 2023-08-14 | Outpatient (CLI) | payer OTHER | LOC: M RAD 11:55 | PROVIDERS: ATTEND Nurse Practitioner Family | DX: I65.23 Occlusion and stenosis of bilateral carotid arteries (principal); I73.9 Peripheral vascular disease, unspecified ==

== ENCOUNTER → 2023-11-18 | Outpatient (CLI) | payer OTHER | LOC: M RAD 14:18 | PROVIDERS: ATTEND Nurse Practitioner Family | DX: E05.00 Thyrotoxicosis with diffuse goiter without thyrotoxic crisis or storm (principal) | CPT/HCPCS: 78012; A9516 ==

== ENCOUNTER 2024-01-17 12:54 | Emergency (ER) | payer OTHER ==
[~2024-01-17] VITALS: Ht 160 cm; Wt 56.4 kg
[2024-01-17] MEDS ORDERED: ARIP1TAB4 PO (15:25)
[2024-01-17] MEDS ORDERED: OXYC-517 PO (15:25)
[2024-01-17] MEDS ORDERED: ROSU40TA81 PO (15:25)
[2024-01-17] MEDS ORDERED: MAGN400T35 PO (15:25)
[2024-01-17] MEDS ORDERED: ZOLO100T PO (15:25)
[2024-01-17] MEDS ORDERED: AMLO1TAB24 PO (15:25)
[2024-01-17] MEDS ORDERED: METO1TAB87 PO (15:25)
[2024-01-17] MEDS ORDERED: STRI1AER2 IN (15:25)
[2024-01-17] MEDS ORDERED: CILO50TA2 PO (15:25)
[2024-01-17] MEDS ORDERED: VITA100T98 PO (15:25)
[2024-01-17] MEDS ORDERED: FINA5TAB2 PO (15:25)
[2024-01-17 16:38] VITALS: BP 122/66; TEMP 98.5; O2SAT 95
== END 2024-01-17 17:32 | disposition left against medical advice (07) ==
LOC: M ED 12:54
DX: G89.18 Other acute postprocedural pain (principal); L76.82 Other postprocedural complications of skin and subcutaneous tissue; Z53.9 Procedure and treatment not carried out, unspecified reason; Z95.1 Presence of aortocoronary bypass graft; F17.200 Nicotine dependence, unspecified, uncomplicated; Z79.82 Long term (current) use of aspirin; Z79.899 Other long term (current) drug therapy; Z88.0 Allergy status to penicillin; Z88.8 Allergy status to other drugs, medicaments and biological substances; Z91.030 Bee allergy status